=== PATIENT | male | born 1960 | race Caucasian/White ===

== ENCOUNTER → 2020-12-31 | Outpatient (CLI) | payer MEDICARE, OTHER ==
[~2020-12-31] MED LIST: ASPIRIN EC81 MG PO; ATORVASTATIN CA20 MG PO; BUDESONIDE0.5 MG/2 M NEB; ENDOCET 5-3251 EACH PO; LOPRESSOR 25 MG25 MG PO; NITROGLYCERIN0.4 MG SL; PANTOPRAZOLE SO40 MG PO; SYNTHROID125 MCG PO
[2020-12-31 15:26] LABS: HEMOGLOBIN 13.3 gm/dl (14.0-17.5); RED BLOOD COUNT 4.82 M/UL (4.20-5.50); WHITE BLOOD COUNT 10.6 K/UL (4.5-11.0)
[2020-12-31 15:48] LABS: BUN/CREATININE RATIO 14 (0-10)
[2021-01-02 13:11] LABS: CHOLESTEROL, TOTAL 219 mg/dL (100-199); HDL SIZE 9.6 nm (>=9.2); HDL-C 64 mg/dL (>39); HDL-P (TOTAL) 34.4 umol/L (>=30.5); LARGE HDL-P 8.4 umol/L (>=4.8); LARGE VLDL-P 2.9 nmol/L (<=2.7); LDL SIZE 21.5 nm (>20.5); LDL SIZE 21.5 nm (>=20.8); LDL-C 136 mg/dL (0-99); LDL-P 1318 nmol/L (<1000); LP-IR SCORE <25 (<=45); SMALL LDL-P 342 nmol/L (<=527); TRIGLYCERIDES 105 mg/dL (0-149); VLDL SIZE 41.3 nm (<=46.6)
== END ==
LOC: LAB 14:53
PROVIDERS: Emergency Medicine
DX: Z12.5 Encounter for screening for malignant neoplasm of prostate (principal); E03.8 Other specified hypothyroidism; R06.02 Shortness of breath; R55 Syncope and collapse
CPT/HCPCS: 36415; 80053; 80061; 83704; 84443; 85025; G0103